=== PATIENT | male | born 1955 ===

== ENCOUNTER → 2025-03-20 12:49 | Outpatient (REF) | payer MEDICARE, OTHER, SELFPAY | LOC: HWRCS 12:49 | PROVIDERS: ATTENDING PHYSICIAN Internal Medicine Cardiovascular Disease; FAMILY PHYSICIAN Internal Medicine | DX: I38 Endocarditis, valve unspecified (principal) | CPT/HCPCS: 93306 ==

== ENCOUNTER → 2025-04-06 11:43 | Outpatient (REF) | payer MEDICARE, OTHER, SELFPAY | LOC: RCS 11:43 | PROVIDERS: ATTENDING PHYSICIAN Internal Medicine Cardiovascular Disease; FAMILY PHYSICIAN Internal Medicine | DX: I25.10 Atherosclerotic heart disease of native coronary artery without angina pectoris (principal) | CPT/HCPCS: 78452; 93017; A9500 ==

== ENCOUNTER → 2025-08-11 10:38 | Outpatient (REF) | payer MEDICARE, OTHER, SELFPAY | LOC: HWRAD 10:38 | PROVIDERS: ATTENDING PHYSICIAN Podiatrist Foot & Ankle Surgery; FAMILY PHYSICIAN Internal Medicine | DX: M89.8X7 Other specified disorders of bone, ankle and foot (principal); M20.5X1 Other deformities of toe(s) (acquired), right foot | CPT/HCPCS: 73630 ==